=== PATIENT | female | born 1980 | race Caucasian/White ===

== ENCOUNTER 2021-08-30 08:23 | Outpatient (CLI) | payer OTHER, SELFPAY ==
[2021-09-04 22:52] LABS: Trich vaginalis DNA Probe NEGATIVE
== END 2021-08-30 08:24 | disposition home or self-care (01) ==
PROVIDERS: PCP Family Medicine; Visit Provider Nurse Practitioner Family
DX: N89.8 Other specified noninflammatory disorders of vagina (principal)
CPT/HCPCS: 87480; 87510; 87660

== ENCOUNTER 2021-10-18 09:11 | Outpatient (CLI) | payer OTHER, SELFPAY ==
[2021-10-18 17:59] LABS: Albumin* 4.7 g/dL (3.3-5.0); Chloride* 101 mmol/L (96-114); Sodium* 136 mmol/L (135-149)
[2021-10-18 18:00] LABS: Potassium* 4.5 mmol/L (3.6-5.1)
[2021-10-18 18:01] LABS: Cholesterol* 209 mg/dL (90-199)
[2021-10-18 18:02] LABS: Alanine Aminotransferase* 14 U/L (4-35); Alkaline Phosphatase* 77 U/L (40-150); Aspartate Amino Transferase* 26 U/L (12-35); Bilirubin Total* 0.6 mg/dL (0.1-1.5); Blood Urea Nitrogen* 10 mg/dL (5-24); Carbon Dioxide* 27 mmol/L (20-32); Creatinine* 0.7 mg/dL (0.5-1.5); Estimated Glomerular Filt Rate 113 ml/min; Glucose* 98 mg/dL (60-115); Total Protein* 7.6 g/dL (6.0-8.3); Triglycerides* 81 mg/dL (40-149)
[2021-10-18 18:03] LABS: Calcium* 9.7 mg/dL (8.4-10.6); HDL Cholesterol* 57 mg/dL (>=50); LDL Cholesterol Calculated 136 mg/dL (<100)
== END 2021-10-18 09:12 | disposition home or self-care (01) ==
PROVIDERS: PCP Family Medicine; Visit Provider Nurse Practitioner Family
DX: Z13.220 Encounter for screening for lipoid disorders (principal); R10.9 Unspecified abdominal pain
CPT/HCPCS: 80053; 80061

== ENCOUNTER 2022-09-23 09:05 | Outpatient (CLI) | payer OTHER, SELFPAY ==
--- NOTE | 2022-09-23 09:15 | CRLHL7_ITS ---
For Patients: As a result of the Century Cures Act, medical imaging exams and procedure reports are released immediately into your electronic medical record. You may view this report before your referring provider. If you have questions, please contact your health care provider. BILATERAL DIGITAL SCREENING MAMMOGRAM WITH TOMOSYNTHESIS AND COMPUTER-AIDED DETECTION CLINICAL HISTORY: Routine screening exam. COMPARISON: 04/02/2017. TECHNIQUE: Digital mammogram in CC and MLO projections including computer-aided detection (CAD). Tomosynthesis utilized. BREAST COMPOSITION: The breasts are heterogeneously dense, which may obscure small masses. FINDINGS: RIGHT Breast: No suspicious findings. LEFT Breast: Focal asymmetric density retroareolar plane 3 cm from the nipple. IMPRESSION: LEFT breast asymmetry/mass. RECOMMENDATIONS: Additional mammographic views of the LEFT breast including 3D spot compression CC/MLO. LEFT breast ultrasound may also be required. BI-RADS Category 0: Incomplete: Need Additional Imaging Evaluation and/or Prior Mammograms for Comparison [facility] will contact the patient for follow-up. A lay language report of this examination will be provided to the patient. Dictated by Sean Gaspar MD @ 09/23/2022 10:12:11 AM jj/Dictated by: Sean Gaspar MD @ 09/23/2022 10:12:00 AM (Electronically Signed)
== END 2022-09-23 09:06 | disposition home or self-care (01) ==
PROVIDERS: PCP Nurse Practitioner Family; Visit Provider Physician Assistant
DX: Z12.31 Encounter for screening mammogram for malignant neoplasm of breast (principal); N63.20 Unspecified lump in the left breast, unspecified quadrant
CPT/HCPCS: 77063; 77067

== ENCOUNTER 2022-09-30 07:40 | Outpatient (CLI) | payer OTHER, SELFPAY ==
--- NOTE | 2022-09-30 07:45 | CRLHL7_ITS ---
For Patients: As a result of the Cures Act, medical imaging exams and procedure reports are released immediately into your electronic medical record. You may view this report before your referring provider. If you have questions, please contact your health care provider. DIGITAL DIAGNOSTIC LEFT MAMMOGRAM UTILIZING TOMOSYNTHESIS AND COMPUTER-AIDED DETECTION LEFT BREAST ULTRASOUND CLINICAL HISTORY: LEFT breast mass/asymmetry. COMPARISON: 09/23/2022. TECHNIQUE: Digital LEFT mammogram in two projections. Tomosynthesis and CAD utilized. Real-time ultrasound imaging of LEFT breast with imaging documentation. BREAST COMPOSITION: The breast is heterogeneously dense, which may obscure small masses. FINDINGS: 3D spot compression CC/MLO LEFT breast mammogram images submitted. Probable fibrocystic change noted in the upper LEFT breast. No architectural distortion or suspicious calcifications. No adenopathy. Targeted LEFT breast ultrasound performed. At 12 o`clock 3 cm from the nipple there is a simple anechoic circumscribed cyst measuring 1.1 x 0.8 x 0.3 cm. Other smaller adjacent cysts are present. No solid masses. IMPRESSION: Benign fibrocystic changes 12 o`clock LEFT breast 3 cm from the nipple. No evidence of malignancy. RECOMMENDATIONS: Annual BILATERAL screening mammography. Results and recommendations discussed with the patient. BI-RADS Category 2: Benign A lay language report of this examination will be provided to the patient. Dictated by Sean Gaspar MD @ 09/30/2022 9:28:50 AM jj/Dictated by: Sean Gaspar MD @ 09/30/2022 9:28:00 AM (Electronically Signed)
--- NOTE | 2022-09-30 08:15 | CRLHL7_ITS ---
For Patients: As a result of the Century Cures Act, medical imaging exams and procedure reports are released immediately into your electronic medical record. You may view this report before your referring provider. If you have questions, please contact your health care provider. Please see combined mammogram and ultrasound report of same day. CRL/bhe be/Dictated by: Sean Gaspar MD @ 09/30/2022 9:28:00 AM (Electronically Signed)
== END 2022-09-30 07:41 | disposition home or self-care (01) ==
LOC: MAMMO 07:40
PROVIDERS: PCP Nurse Practitioner Family; Visit Provider Physician Assistant
DX: N63.20 Unspecified lump in the left breast, unspecified quadrant (principal); R92.8 Other abnormal and inconclusive findings on diagnostic imaging of breast
CPT/HCPCS: 76642; 77065; G0279

== ENCOUNTER 2023-01-21 15:32 | Outpatient (CLI) | payer OTHER, SELFPAY ==
--- NOTE | 2023-01-21 16:00 | CRLHL7_ITS ---
For Patients: As a result of the Century Cures Act, medical imaging exams and procedure reports are released immediately into your electronic medical record. You may view this report before your referring provider. If you have questions, please contact your health care provider. Indication: Irritable bowel syndrome without diarrhea Technique: CT Abdomen/Pelvis W ISOVUE 370 Please note that all CT scans at this facility use dose modulation, iterative reconstruction, and/or weight-based dosing when appropriate to reduce radiation dose to as low as reasonably achievable. Comparison: None Findings: Mild atelectasis is present within both lung bases. There is no pleural effusion. No free intraperitoneal air. Calcified granuloma is present at the anterior right lung base. No intrahepatic mass. The spleen is normal. Normal pancreas. Normal gallbladder. Adrenal glands are normal. Normal kidneys. No hiatal hernia. No adenopathy. Uterus and ovaries are normal. No excess pelvic free fluid. Normal bladder. No bowel obstruction. No inflammatory changes. Appendix is unremarkable. Normal osseous structures. Terminal ileum is normal. No bowel wall thickening. Impression: No evidence of colitis or enteritis. No inflammatory bowel disease. Normal appendix. No adenopathy, fistula or abscess. Please note that all CT scans at this facility use dose modulation, iterative reconstruction, and/or weight-based dosing when appropriate to reduce radiation dose to as low as reasonably achievable. Dictated by Sean Gaspar MD @ 01/24/2023 2:00:53 PM (Electronically Signed)
== END 2023-01-21 15:33 | disposition home or self-care (01) ==
LOC: CT 15:33
PROVIDERS: PCP Nurse Practitioner Family; Visit Provider Internal Medicine
DX: K58.9 Irritable bowel syndrome, unspecified (principal)
CPT/HCPCS: 74177; Q9967

== ENCOUNTER 2023-04-22 16:04 | Outpatient (CLI) | payer OTHER, SELFPAY | END 2023-04-22 16:05 | disposition home or self-care (01) | LOC: NFLDREF 05-05 18:53 | PROVIDERS: PCP Nurse Practitioner Family; Referring Provider Nurse Practitioner Family; Visit Provider Registered Nurse | DX: R30.0 Dysuria (principal); R39.9 Unspecified symptoms and signs involving the genitourinary system; N89.8 Other specified noninflammatory disorders of vagina | CPT/HCPCS: 87086 ==

== ENCOUNTER 2023-07-07 10:58 | Outpatient (CLI) | payer OTHER, SELFPAY | END 2023-07-07 10:59 | disposition home or self-care (01) | PROVIDERS: PCP Nurse Practitioner Family; Visit Provider Physician Assistant | DX: Z01.419 Encounter for gynecological examination (general) (routine) without abnormal findings (principal); Z13.6 Encounter for screening for cardiovascular disorders; Z13.1 Encounter for screening for diabetes mellitus | CPT/HCPCS: 80061; 82947 ==

== ENCOUNTER 2023-09-23 07:55 | Outpatient (CLI) | payer OTHER, SELFPAY ==
--- OUTSIDE RECORDS SUMMARY | 2023-09-23 07:57 | XMS_ITS | Clinical Summary ---
Author Organization [facility] Address [address], [place] [address] Care Team Providers Care Command Center Officer Name Role Phone EmilioKailee DO Primary Care Provider [phone] Source Comments You are receiving this document as you are listed as the primary care provider,follow-up provider, or the patient has been referred to you for consultation.This is in compliance with the Medicare and[facility] E[facility] Incentive Program,which states Providers who transition their patient to another setting of careor provider of care or refers their patient to another provider of care shouldprovide summary care record for each transition of care or referral. [facility] Allergies Active Allergy Reactions Criticality Noted Date Comments Cephalexin Hives,Other, see comments High 08/23/2015 Blisters on lips and in mouth Other 06/08/2008 PN: LW Other1: -none LW Other2: -none Review Contrast Media 06/08/2008 PN: LW CM1: >>> NO CONTRAST ADVERSE REACTION <<< Reaction : Review Food Intolerance 06/08/2008 PN: LW FI1: nka Medications Medication Sig Dispensed Refills Start Date End Date Status intra-uterine copper (PARAGARD T 380-A) by Intrauterine route once. Active sertraline (ZOLOFT) 25 MG tabletIndications:A nxiety state (HRC) Take 2 Tabs by mouth daily. 60 Tab 1 08/07/2016 Active Active Problems Problem Noted Date Diagnosed Date Anxiety state 07/02/2005 Overview: LW Onset: 22Jos00 ; Anxiety NOS Immunizations Name Administration Dates Next Due Flu Vac (3+ yrs) 12/13/2011,12/07/2010 MMR 09/18/1994 TDAP (BOOSTRIX) 06/16/2009 Td 03/30/1997 Tdap 08/03/2013,06/16/2009 Social History Tobacco Use Types Packs/Day Years Used Date Smoking Tobacco: Never Smokeless Tobacco: Never Alcohol Use Standard Drinks/Week Comments Yes 0 (1 standard drink = 0.6 oz pur e alcohol) Occasional Sex and Gender Information Value Date Recorded Sex Assigned at Not on file Gender Identity Not on file Sexual Orientation Not on file Last Filed Vital Signs Vital Sign Reading Time Taken Comments Blood Pressure 102/64 08/07/2016 8:07 AM CDT Pulse 62 08/07/2016 8:07 AM CDT Temperature 36.6 ??C (97.9 ??F) 08/11/2009 10:29 AM C DT C: 36.6 C Respiratory Rate - - Oxygen Saturation - - Inhaled Oxygen Concentration - - Weight 57.6 kg (127 lb) 08/07/2016 8:07 AM CDT Height 153.7 cm (5' 0.5) 08/23/2015 11:18 AM CD T Body Mass Index 24.39 08/23/2015 11:18 AM CDT Plan of Treatment Health Maintenance Due Date Last Done Comments Hep C Screening (Preventive Services) 1981 Mammogram 1981 HIV Screening (Preventive Services) 1997 Adult Preventive Visit 12/19/1999 HepB (1) 2000 Cervical Cancer Screening Due 06/17/2009 06/16/2009, 06/08/2008, 05/20/2007, Additional history exists COVID-19 Vaccine ( - 2022-24 season) 2022 DTaP/Tdap/Td (5 - Tdap) 08/04/2023 08/04/19 14, 06/16/2009, 06/16/2009, Additional history exists Influenza (#1) 2023 12/13/2011, 12/07/2010 Zoster/Shingles (1 of 2) 12/19/2031 HPV Vaccine Aged Out No longer eligi ble based on patient's age to complete this topic HepA Aged Out No longer eligi ble based on patient's age to complete this topic Hib Aged Out No longer eligi ble based on patient's age to complete this topic IPV (Polio) Aged Out No longer eligi ble based on patient's age to complete this topic MCV4 Aged Out No longer eligi ble based on patient's age to complete this topic Pneumococcal Aged Out No longer eligi ble based on patient's age to complete this topic Procedures Procedure Name Priority Date/Time Associated Diagnosis Comments ANATOMICAL PATH LIQUID BASED Routine 06/16/2009 12:15 PM CDT from Last 3 Months or Most Recently Relevant to Health Maintenance Results * Pap Smear (06/16/2009 12:15 PM CDT) Pap Smear SEE TEXT No normal range HP CONVERSION Comment: Final GYNECOLOGICAL CYTOLOGY REPORT Pathology #: [id number] ?Date Obtained: 06/16/2009 ? Date Received: 06/19/2009 INTERPRETATION/RESULTS: Negative for Intraepithelial Lesion or Malignancy SPECIMEN ADEQUACY: Satisfactory for Evaluation. ??Endocervical cells/transformation zone component present. Verified on 06/22/2009 ??by MEE REED(ASCP) (electronic signature) CLINICAL NOTES: ?LMP: 06/06/2009. SPECIMEN TYPE: ? CERVICAL WITH REFLEX TO HPV IF ASCUS ?End of Report 06/16/2009 12:1 5 PM CDT Nora John APRN, HEAVY LINE TECHNICIAN LAB_1 HP CONVERSION from Last 3 Months or Most Recently Relevant to Health Maintenance Care Teams Command Center Officer Relationship Specialty Start Date End Date Kailee Jhaveri DO [address] [place] [address] PCP - General Family Practice 06/19/16
--- NOTE | 2023-09-23 08:15 | CRLHL7_ITS ---
For Patients: As a result of the Century Cures Act, medical imaging exams and procedure reports are released immediately into your electronic medical record. You may view this report before your referring provider. If you have questions, please contact your health care provider. Indication: localized lump/mass Technique: Grayscale and color Doppler ultrasound of the right submandibular soft tissues. Comparison: None Findings: Subcutaneous lymph node is present measuring 8 x 4 x 11 millimeters. No abnormal vascularity. No fluid collection. Impression: Normal subcutaneous lymph node. No suspicious findings. Dictated by Sean Gaspar MD @ 09/23/2023 9:16:14 AM (Electronically Signed)
== END 2023-09-23 07:56 | disposition home or self-care (01) ==
LOC: US 07:56
PROVIDERS: PCP Nurse Practitioner Family; Visit Provider Physician Assistant
DX: R22.1 Localized swelling, mass and lump, neck (principal)
CPT/HCPCS: 76536

== ENCOUNTER 2023-11-18 13:07 | Outpatient (CLI) | payer OTHER, SELFPAY ==
--- OUTSIDE RECORDS SUMMARY | 2023-11-18 13:13 | XMS_ITS | Clinical Summary ---
Author Organization [facility] Address [address], [place] [address] Care Team Providers Care Relationship Advisor Name Role Phone EmilioKailee DO Primary Care Provider [phone] Source Comments You are receiving this document as you are listed as the primary care provider,follow-up provider, or the patient has been referred to you for consultation.This is in compliance with the Medicare and[facility] E[facility] Incentive [facility],which states Providers who transition their patient to another setting of careor provider of care or refers their patient to another provider of care shouldprovide summary care record for each transition of care or referral. [facility] Allergies Active Allergy Reactions Criticality Noted Date [...] Noted Date Diagnosed Date Anxiety state 07/02/2005 Overview (10/09/2016): LW Onset: [id number] ; Anxiety NOS Immunizations Name Administration Dates [...] 06/17/2009 06/16/2009, 06/08/2008, 05/20/2007, Additional history exists DTaP/Tdap/Td (5 - Tdap) 08/04/2023 08/04/19 14, 06/16/2009, 06/16/2009, Additional history exists COVID-19 Vaccine (2023- season) 2023 Influenza (#1) 2023 12/13/2011, 12/07/2010 Zoster/Shingles (1 [...] Comment: Final GYNECOLOGICAL CYTOLOGY REPORT Pathology #: [id number] ?Date Obtained: 06/16/2009 ? Date Received: 06/19/2009 INTERPRETATION/RESULTS: Negative for Intraepithelial Lesion or Malignancy SPECIMEN ADEQUACY: Satisfactory for Evaluation. ??Endocervical cells/transformation zone component present. Verified on 06/22/2009 ??by MEE REED(ASCP) (electronic signature) CLINICAL NOTES: ?LMP: 06/06/2009. SPECIMEN TYPE: ? CERVICAL WITH REFLEX TO HPV IF ASCUS ?End of Report 06/16/2009 12:1 5 PM CDT Nora John APRN, STAMP CLERK LAB_1 HP CONVERSION from Last 3 Months or Most Recently Relevant to Health Maintenance Care Teams Relationship Advisor Relationship Specialty Start Date End Date Kailee Jhaveri DO [address] [place] [address] PCP - General Family Practice 06/19/16
--- NOTE | 2023-11-18 13:20 | CRLHL7_ITS ---
For Patients: As a result of the Century Cures Act, medical imaging exams and procedure reports are released immediately into your electronic medical record. You may view this report before your referring provider. If you have questions, please contact your health care provider. BILATERAL SCREENING MAMMOGRAM WITH COMPUTER-AIDED DETECTION AND TOMOSYNTHESIS TECHNIQUE: CC and MLO views were obtained. These mammographic images have been obtained using full-field digital technique. These mammographic images were interpreted with the benefit of computer-aided detection. Breast Tomosynthesis was used in this interpretation. COMPARISON FILM: 09/23/22, 09/30/22 (LT ONLY), 04/02/17 (LT ONLY). FINDINGS: The breasts are heterogeneously dense, which may obscure small masses. IMPRESSION: There is no radiographic evidence for malignancy. ASSESSMENT: BI-RADS Category 1: Negative RECOMMENDATION: Routine screening mammogram in 1 year. A lay language report of this examination will be provided to the patient. Sean Gaspar M.D. Diagnostic Radiologist [email or web address] SP/Dictated by: Sean Gaspar MD @ 11/21/2023 10:52:00 AM (Electronically Signed)
== END 2023-11-18 13:08 | disposition home or self-care (01) ==
LOC: MAMMO 13:08
PROVIDERS: PCP Nurse Practitioner Family; Visit Provider Nurse Practitioner Family
DX: Z12.31 Encounter for screening mammogram for malignant neoplasm of breast (principal); R92.333 Mammographic heterogeneous density, bilateral breasts
CPT/HCPCS: 77063; 77067

== ENCOUNTER 2024-06-28 09:30 | Outpatient (CLI) | payer OTHER, SELFPAY ==
--- NOTE | 2024-06-28 09:45 | CRLHL7_ITS ---
For Patients: As a result of the Century Cures Act, medical imaging exams and procedure reports are released immediately into your electronic medical record. You may view this report before your referring provider. If you have questions, please contact your health care provider. DIGITAL DIAGNOSTIC BILATERAL MAMMOGRAM USING TOMOSYNTHESIS AND COMPUTER-AIDED DETECTION BILATERAL BREAST ULTRASOUND CLINICAL HISTORY: BILATERAL breast lumps. COMPARISON: 11/18/2023, 09/23/2022, TECHNIQUE: Digital BILATERAL mammogram in six projections with computer-aided detection. Tomosynthesis was used in this interpretation. Real-time ultrasound imaging of BILATERAL breast with imaging documentation. BREAST COMPOSITION: The breasts are heterogeneously dense, which may obscure small masses. FINDINGS: BILATERAL mammogram images demonstrate nodular densities bilaterally, not significantly changed. No architectural distortion. Benign calcifications. No adenopathy. Targeted LEFT breast ultrasound performed. At 1 o`clock 6 cm from the nipple there is a hypoechoic structure with possible calcifications at mid depth measuring 6 x 4 x 8 millimeters. Benign anechoic cysts are present elsewhere within the LEFT breast particularly at 12 o`clock 3 cm from the nipple measuring up to 9 millimeters. Targeted RIGHT breast ultrasound performed in the area of concern at 11 o`clock 5 cm from the nipple. Multiple cysts are present which measure up to 1.7 x 0.5 x 0.9 cm. IMPRESSION: BILATERAL fibrocystic changes. Indeterminate hypoechoic nodule LEFT breast 1 o`clock 6 cm from the nipple measuring 8 millimeters. RECOMMENDATIONS: Ultrasound-guided biopsy of the indeterminate nodule. A lay language report of this examination will be provided to the patient. BI-RADS Category 4: Suspicious Dictated by Sean Gaspar MD @ 06/28/2024 11:49:14 AM jj/Dictated by: Sean Gaspar MD @ 06/28/2024 11:49:00 AM (Electronically Signed)
--- NOTE | 2024-06-28 10:15 | CRLHL7_ITS ---
For Patients: As a result of the Cures Act, medical imaging exams and procedure reports are released immediately into your electronic medical record. You may view this report before your referring provider. If you have questions, please contact your health care provider. SEE DIGITAL DIAGNOSTIC BILATERAL MAMMOGRAM PERFORMED SAME DAY CRL:noam santacruz/Dictated by: Sean Gaspar MD @ 06/28/2024 11:49:00 AM (Electronically Signed)
== END 2024-06-28 09:31 | disposition home or self-care (01) ==
LOC: MAMMO 09:32
PROVIDERS: PCP Nurse Practitioner Family; Visit Provider Physician Assistant
DX: N63.20 Unspecified lump in the left breast, unspecified quadrant (principal); N63.10 Unspecified lump in the right breast, unspecified quadrant
CPT/HCPCS: 76642; 77066; G0279

== ENCOUNTER 2024-07-09 08:56 | Outpatient (CLI) | payer OTHER, SELFPAY ==
--- NOTE | 2024-07-09 09:15 | CRLHL7_ITS ---
For Patients: As a result of the Century Cures Act, medical imaging exams and procedure reports are released immediately into your electronic medical record. You may view this report before your referring provider. If you have questions, please contact your health care provider. ULTRASOUND-GUIDED LEFT BREAST BIOPSY AND POST-BIOPSY DIGITAL MAMMOGRAM FOR BIOPSY MARKER PLACEMENT CLINICAL HISTORY: Indeterminate hypoechoic nodule. COMPARISON STUDIES: 06/28/2024. TECHNIQUE: Real-time ultrasound with image documentation was used for targeting the breast lesion. Core biopsy specimens were obtained using an automated gun with a 16 gauge biopsy needle. Post-biopsy CC and ML digital mammograms were obtained to document position of the biopsy marker. CONSENT and TIME OUT: The procedure, risks, and alternatives were explained to the patient and a consent was signed. [place] Protocol was followed including pre-procedure verification that relevant information/documentation was available, reviewed and properly matched to the patient; consent accurate and complete; and equipment and supplies available. Time Out was conducted just prior to starting procedure to verify the four required elements: patient identity, correct side/site marked (if applicable), procedure, relevant images/results properly labeled and displayed (if applicable). PROCEDURE: The patient was positioned supine on the ultrasound table. The breast was prepped with ChloraPrep. 8 cc of 1 percent lidocaine used for local anesthesia. Core samples were obtained. A sterile metal biopsy clip was placed percutaneously to isauro the lesion position within the breast. The specimens were placed in 10% formalin and sent to the pathology department. Pressure was held on the biopsy site until all bleeding subsided. The skin incision was closed with Steri-Strips. An ice pack was positioned over the biopsy site. Post-biopsy instructions were reviewed with the patient, and a written copy was given to her. LATERALITY: LEFT breast. LESION: Hypoechoic nodule measuring 6 x 4 x 8 mm at 1 o`clock 6 cm from the nipple. SUSPICION FOR MALIGNANCY: Low. NUMBER OF SAMPLES: 5. BIOPSY CLIP SHAPE: Oval. PROXIMITY OF CLIP TO TARGET: Within the lesion. IMPRESSION: Ultrasound-guided breast biopsy. When the pathology report is available, an addendum to this report will be made. ACR not applicable Dictated by Sean Gaspar MD @ 07/09/2024 9:50:43 AM /sp SP/Dictated by: Sean Gaspar MD @ 07/09/2024 9:50:00 AM (Electronically Signed)
--- NOTE | 2024-07-09 10:00 | CRLHL7_ITS ---
For Patients: As a result of the Century Cures Act, medical imaging exams and procedure reports are released immediately into your electronic medical record. You may view this report before your referring provider. If you have questions, please contact your health care provider. PLEASE SEE LEFT BREAST ULTRASOUND-GUIDED BIOPSY OF SAME DAY. CRL:sp SP/Dictated by: Sean Gaspar MD @ 07/09/2024 11:10:00 AM (Electronically Signed)
== END 2024-07-09 08:57 | disposition home or self-care (01) ==
LOC: US 08:56
PROVIDERS: PCP Nurse Practitioner Family; Visit Provider Physician Assistant
DX: R92.8 Other abnormal and inconclusive findings on diagnostic imaging of breast (principal); N63.20 Unspecified lump in the left breast, unspecified quadrant; N64.59 Other signs and symptoms in breast
CPT/HCPCS: 19083; 77065; 88305; A4648; A4649

== ENCOUNTER 2024-10-20 10:42 | Outpatient (CLI) | payer OTHER, SELFPAY | END 2024-10-20 10:43 | disposition home or self-care (01) | LOC: LKVREF 10:45 | PROVIDERS: PCP Nurse Practitioner Family; Visit Provider Nurse Practitioner Family | DX: E78.5 Hyperlipidemia, unspecified (principal); L65.9 Nonscarring hair loss, unspecified; F41.9 Anxiety disorder, unspecified; Z13.1 Encounter for screening for diabetes mellitus | CPT/HCPCS: 80061; 82947; 84443 ==